=== PATIENT | female | born 1975 | race Caucasian/White ===

== ENCOUNTER 2021-10-10 22:14 | Emergency (ER) | payer MEDICAID ==
[~2021-10-10] VITALS: Ht 165.1 cm; Wt 113.4 kg
--- NOTE | 2021-10-10 22:25 | NUR ---
TO ER BED 4. BIBS FOR C/O WORSENING L ANKLE AND L BARTLETT PAIN AND SWELLING SINCE AFTERNOON. CONNECTED TO MONITOR. VSS. AWAITING MD POWERS
[2021-10-10] MEDS ORDERED: KETOROLAC TROMETHAMINE INJ 60 MG/2 ML VIAL IM ONE ×2 (22:30→22:43)
--- NOTE | 2021-10-10 23:30 | NUR ---
ULTRASOUND AT BEDSIDE
[2021-10-11] MEDS ORDERED: KETO10TA2 PO
[2021-10-11] MEDS ORDERED: CEPH500C2 PO
[2021-10-11] MEDS ORDERED: CEPHALEXIN MONOHYDRATE 500 MG CAPSULE PO ONE ×2 (00:08)
[2021-10-11 00:23] VITALS: BP 139/74
== END 2021-10-11 00:23 | disposition home or self-care (01) ==
LOC: ER 22:14
DX: L03.116 Cellulitis of left lower limb (principal)
CPT/HCPCS: 93971; 96372; 99284; J1885

== ENCOUNTER 2021-10-18 09:59 | Emergency (ER) | payer MEDICAID ==
[~2021-10-18] VITALS: Ht 167.6 cm; Wt 113.4 kg
[~2021-10-18 09:59] MED LIST: CEPH500C2 PO; KETO10TA2 PO
[2021-10-18] MEDS ORDERED: AZIT250T13 PO (12:43)
[2021-10-18 13:29] VITALS: BP 115/71
--- NOTE | 2021-10-18 13:30 | NUR ---
Patient discharged to home in stable condition. Written and verbal after care instructions given. Patient verbalizes understanding of instruction.
== END 2021-10-18 13:30 | disposition home or self-care (01) ==
LOC: ER 10:01
DX: U07.1 COVID-19 (principal); J18.9 Pneumonia, unspecified organism; R04.2 Hemoptysis; Z79.899 Other long term (current) drug therapy
CPT/HCPCS: 71250-TC

== ENCOUNTER 2024-12-28 20:08 | Emergency (ER) | payer MEDICAID ==
[~2024-12-28] VITALS: Ht 167.6 cm; Wt 81.6 kg
[~2024-12-28 20:08] MED LIST changes: +AZIT250T13 PO
[2024-12-28 21:41] VITALS: BP 124/81; TEMP 97.8; O2SAT 97
[2024-12-28 22:19] LABS: APPEARANCE,URINE CLEAR (CLEAR); BLOOD, URINE TRACE-INTA Ery/uL (NEGATIVE); LEUKOCYTE ESTERASE ,URINE 1+ (NEGATIVE); NITRITE, URINE NEGATIVE (NEGATIVE); UGLUCOSE NEGATIVE (NEGATIVE)
[2024-12-28 22:21] LABS: PREGNANCY TEST URINE QUAL NEGATIVE (NEGATIVE)
[2024-12-28 22:37] LABS: ADD URINE CULTURE YES
[2024-12-28 22:38] LABS: SQUAMOUS EPITHELIAL CELL,UR Moderate /HPF (None Seen)
[2024-12-28] MEDS ORDERED: SULF1TAB48 PO (23:10)
== END 2024-12-28 23:11 | disposition home or self-care (01) ==
LOC: ER 20:13
DX: N39.0 Urinary tract infection, site not specified (principal); Z79.899 Other long term (current) drug therapy; F32.A Depression, unspecified
CPT/HCPCS: 81001; 84703-TC

== ENCOUNTER 2024-12-29 18:52 | Inpatient (IN) | payer MEDICAID ==
[~2024-12-29] VITALS: Ht 167.6 cm; Wt 93.4 kg
[~2024-12-29 18:52] MED LIST changes: +SULF1TAB48 PO
[2024-12-29 21:12] LABS: PREGNANCY TEST URINE QUAL NEGATIVE (NEGATIVE)
[2024-12-29 21:13] LABS: APPEARANCE,URINE CLEAR (CLEAR); BLOOD, URINE NEGATIVE Ery/uL (NEGATIVE); LEUKOCYTE ESTERASE ,URINE 1+ (NEGATIVE); NITRITE, URINE NEGATIVE (NEGATIVE); UGLUCOSE NEGATIVE (NEGATIVE)
[2024-12-29] MEDS ORDERED: PIPERACI/TAZO 3.375GM/D5W 50ML PB IV ONE (21:24)
[2024-12-29 21:25] LABS: SQUAMOUS EPITHELIAL CELL,UR Moderate /HPF (None Seen)
[2024-12-29 21:26] LABS: ADD URINE CULTURE YES
[2024-12-29] MEDS: PIPERACILLIN /TAZOBACTAM 3.375 G in IV D5W 50 ML IV ONE (21:30)
[2024-12-29 22:05] LABS: PLATELET COUNT (AUTO) 181 K/uL (150-450); RED BLOOD CELL COUNT(AUTO) 4.58 MIL/uL (4.0-5.2); RED CELL DISTRIBUTION WIDTH 14.7 % (11.5-15.0); WHITE BLOOD COUNT (AUTO) 5.5 K/uL (4.3-11.0)
[2024-12-29 22:17] LABS: CALCIUM, SERUM 8.9 mg/dL (8.5-10.1); CREATININE 0.7 mg/dL (0.6-1.3); SODIUM SERUM 142.0 mmol/L (136-145); UREA NITROGEN, BLOOD 20.0 mg/dL (7-18)
[2024-12-29 22:30] VITALS: O2SAT 98
[2024-12-29] MEDS ORDERED: MAGNESIUM HYDROXIDE 30 ML UDC PO PRN (22:30)
[2024-12-29] MEDS ORDERED: Z GUARD REMEDY 4 OZ OINT TP PRN (22:30)
[2024-12-29] MEDS ORDERED: HYDROCODONE/APAP 5/325MG TABLET PO PRN (22:30)
[2024-12-29] MEDS ORDERED: ONDANSETRON HCL/PF 4 MG/2 ML VIAL IVP PRN (22:30)
[2024-12-29] MEDS ORDERED: ALPRAZOLAM 0.5 MG TABLET PO PRN (22:30)
[2024-12-29] MEDS ORDERED: MAG HYDROX/AL HYDROX/SIMETH 30 ML UDC PO PRN (22:30)
[2024-12-29 23:15] VITALS: BP 147/84; TEMP 97.7; O2SAT 100
[2024-12-30] MEDS: IV NS 0.9% 1,000 ML IV PRN (00:01)
[2024-12-30] MEDS ORDERED: PIPERACI/TAZO 3.375GM/D5W 50ML PB IV ONE (04:08)
[2024-12-30] MEDS: PIPERACILLIN /TAZOBACTAM 3.375 G in IV D5W 50 ML IV SCH (04:11)
[2024-12-30] MEDS ORDERED: PIPERACILLIN /TAZOBACTAM 3.375 G in IV D5W 50 ML IV SCH (05:00)
[2024-12-30 07:25] LABS: PLATELET COUNT (AUTO) 167 K/uL (150-450); RED BLOOD CELL COUNT(AUTO) 4.06 MIL/uL (4.0-5.2); RED CELL DISTRIBUTION WIDTH 14.4 % (11.5-15.0); WHITE BLOOD COUNT (AUTO) 4.6 K/uL (4.3-11.0)
[2024-12-30 08:09] VITALS: BP 138/92; TEMP 97.7; O2SAT 97
[2024-12-30] MEDS: PANTOPRAZOLE 40 MG TABLET.DR PO SCH (08:11)
[2024-12-30] MEDS: PIPERACILLIN /TAZOBACTAM 3.375 G in IV D5W 100 ML IV SCH (08:16)
[2024-12-30 08:30] LABS: CALCIUM, SERUM 8.5 mg/dL (8.5-10.1); CREATININE 0.8 mg/dL (0.6-1.3); PHOSPHORUS 4.4 mg/dL (2.5-4.9); SODIUM SERUM 140.0 mmol/L (136-145); UREA NITROGEN, BLOOD 17.0 mg/dL (7-18)
[2024-12-30] MEDS ORDERED: SEMA0.25 SQ (08:41)
[2024-12-30] MEDS ORDERED: ATOR10TA PO (08:41)
[2024-12-30] MEDS ORDERED: ESTR42.511 VG (08:41)
[2024-12-30] MEDS ORDERED: LISI2.5T2 PO (08:41)
[2024-12-30] MEDS ORDERED: FLUT16SP BNOSTRILS (08:41)
[2024-12-30] MEDS ORDERED: ESCI10TA PO (08:41)
[2024-12-30] MEDS ORDERED: PROG100C15 PO (08:41)
[2024-12-30] MEDS: MEROPENEM 500 MG in IV NS 0.9% 50 ML IV SCH (10:31)
[2024-12-30 16:32] VITALS: BP 123/83; TEMP 97.5; O2SAT 97
[2024-12-30 20:00] VITALS: BP 124/83; TEMP 98.5; O2SAT 95
[2024-12-31] MEDS: ACETAMINOPHEN 325 MG TABLET PO PRN (03:26)
[2024-12-31 06:37] LABS: CALCIUM, SERUM 8.8 mg/dL (8.5-10.1); CREATININE 0.8 mg/dL (0.6-1.3); SODIUM SERUM 140.0 mmol/L (136-145); UREA NITROGEN, BLOOD 13.0 mg/dL (7-18)
[2024-12-31 06:40] LABS: PLATELET COUNT (AUTO) 173 K/uL (150-450); RED BLOOD CELL COUNT(AUTO) 4.38 MIL/uL (4.0-5.2); RED CELL DISTRIBUTION WIDTH 14.6 % (11.5-15.0); WHITE BLOOD COUNT (AUTO) 4.6 K/uL (4.3-11.0)
[2024-12-31 07:30] VITALS: BP 108/63; TEMP 97.7; O2SAT 97
[2024-12-31] MEDS ORDERED: ERTA1VIA4 IJ (08:57)
== END 2024-12-31 14:20 | disposition home health service (06) | DRG 463 ==
LOC: ER 18:55 → MED 22:35
PROVIDERS: ADMIT Nurse Practitioner Acute Care; ATTEND Internal Medicine
DX: N39.0 Urinary tract infection, site not specified (principal); B96.4 Proteus (mirabilis) (morganii) as the cause of diseases classified elsewhere; E66.9 Obesity, unspecified; F32.A Depression, unspecified; Z16.24 Resistance to multiple antibiotics; R73.03 Prediabetes; Z87.440 Personal history of urinary (tract) infections; Z68.30 Body mass index [BMI] 30.0-30.9, adult; N10 Acute pyelonephritis
CPT/HCPCS: 36415; 80048-TC; 81001; 83735-TC; 84100-TC; 84703-TC; 85025-TC; 87040-TC; 87086-TC; A4223; G0378; J2185; J2543; J7030; J7060; J7070